=== PATIENT | female | born 1945 | race Caucasian/White ===

== ENCOUNTER 2019-03-10 10:30 | Emergency (ER) | payer OTHER ==
[~2019-03-10] VITALS: Ht 157.5 cm; Wt 54.4 kg
[2019-03-10] MEDS ORDERED: Augmentin 875-1 EACH PO (11:42)
== END 2019-03-10 11:52 | disposition home or self-care (01) ==
LOC: ER 10:30
DX: H66.93 Otitis media, unspecified, bilateral (principal); H72.93 Unspecified perforation of tympanic membrane, bilateral; I10 Essential (primary) hypertension
CPT/HCPCS: 99282